=== PATIENT | female | born 1970 | race Hispanic/Latino ===

== ENCOUNTER → 2024-12-02 | Day surgery (SDC) | payer BC ==
[~2024-12-02] MED LIST: FERROUS SULFAT325 MG PO; LIDOCAINE HCL 2% LOCAL INJ 5 ML SDV VIAL INJ ONE; MIDAZOLAM HCL 2 MG/2 ML VIAL ONE; PROPOFOL IV EMULSION 10 MG/ML 20 ML VIAL ONE
[2024-12-02] MEDS: LACTATED RINGER'S 1,000 ML ONE (10:13)
[2024-12-02 11:32] VITALS: TEMP 97.3
[2024-12-02 12:00] VITALS: BP 148/76; PULSE 80; RESP 16; O2SAT 98
== END | disposition home or self-care (01) ==
LOC: OR 05:00
PROVIDERS: ATTEND Internal Medicine Gastroenterology
DX: Z12.11 Encounter for screening for malignant neoplasm of colon (principal); K57.30 Diverticulosis of large intestine without perforation or abscess without bleeding; K64.8 Other hemorrhoids; D50.9 Iron deficiency anemia, unspecified; R03.0 Elevated blood-pressure reading, without diagnosis of hypertension; R82.90 Unspecified abnormal findings in urine; Z01.810 Encounter for preprocedural cardiovascular examination; Z68.32 Body mass index [BMI] 32.0-32.9, adult; Z80.0 Family history of malignant neoplasm of digestive organs
CPT/HCPCS: 45378; 81025; 93005; J2003; J2250; J2704; J7121